=== PATIENT | male | born 1975 | race African-American/Black ===

== ENCOUNTER 2020-06-03 09:11 | Day surgery (SDCO) | payer SELFPAY ==
[2020-06-03 10:08] LABS: BASOPHIL 1.6 % (0-2); EOSINOPHIL 1.4 % (0-5); HCT 39.4 % (42.0-52.0); HGB 14.3 g/dl (13.2-18.0); LYMPHOCYTE 37.2 % (15-48); MCH 28.7 pg (25.0-31.0); MCHC 36.3 g/dL (32.0-36.0); MCV 79.1 fL (78.0-100.0); MONOCYTE 7.7 % (0-12); MPV 10.3 fL (6.0-9.5); NEUTROPHIL 51.7 % (41-80); NRBC 0; PLT 274 K/uL (150-400); RBC 4.98 M/uL (4.70-6.00); RDW 13.8 % (11.5-14.0); WBC 4.9 K/uL (4.0-10.5)
[2020-06-03 10:10] LABS: ALBUMIN 3.4 g/dL (3.4-5.0); BILIRUBIN - TOTAL 0.4 mg/dL (0.2-1.0); BUN/CREAT RATIO (CALC) 18.6 RATIO; CREATININE 0.86 mg/dL (0.67-1.17); GLOBULIN (CALCULATION) 3.5 g/dL; POTASSIUM 3.7 mmol/L (3.5-5.1); TOTAL PROTEIN 6.9 g/dL (6.4-8.2)
[2020-06-03 10:13] LABS: INR 0.97 (0.9-1.2); PROTHROMBIN TIME 12.2 SECONDS (11.4-13.6)
[2020-06-03 10:15] LABS: D-DIMER 0.28 ug/mLFEU (0.00-0.41)
[2020-06-03 10:59] LABS: CORONAVIRUS 2019 SARS-COV-2 NEGATIVE (NEGATIVE)
[2020-06-03 11:00] LABS: INFLUENZA A NAA NEGATIVE (NEGATIVE)
[2020-06-03] MEDS ORDERED: POTASSIUM20 MEQ/11 PO (16:05)
--- NOTE | 2020-06-03 19:36 | NUR ---
1819 PT COMPLAINED OF DULL CHEST PAIN CHECKED BLOOD PRESUURE 134/[address] MCCORD AND VERFIED GIVING NITRO SUBLINGUAL, DR MCCORD AGREED TO ADMINISTER 1 DOSE
[2020-06-04 06:14] LABS: BASOPHIL 0.9 % (0-2); EOSINOPHIL 1.3 % (0-5); HCT 40.6 % (42.0-52.0); HGB 14.4 g/dl (13.2-18.0); LYMPHOCYTE 40.5 % (15-48); MCH 28.2 pg (25.0-31.0); MCHC 35.5 g/dL (32.0-36.0); MCV 79.5 fL (78.0-100.0); MONOCYTE 6.3 % (0-12); MPV 9.9 fL (6.0-9.5); NEUTROPHIL 50.6 % (41-80); NRBC 0; PLT 273 K/uL (150-400); RBC 5.11 M/uL (4.70-6.00); RDW 13.5 % (11.5-14.0); WBC 5.4 K/uL (4.0-10.5)
[2020-06-04 06:33] LABS: BUN/CREAT RATIO (CALC) 13.9 RATIO; CREATININE 0.79 mg/dL (0.67-1.17); POTASSIUM 3.8 mmol/L (3.5-5.1)
== END 2020-06-04 12:35 | disposition home or self-care (01) ==
LOC: FER 09:11 → FMS 14:19
PROVIDERS: Emergency Medicine; Internal Medicine; ADMIT Hospitalist
DX: R07.89 Other chest pain (principal); E66.3 Overweight; Z68.39 Body mass index [BMI] 39.0-39.9, adult; Z20.822 Contact with and (suspected) exposure to COVID-19
CPT/HCPCS: 36415; 71045; 71275; 80048; 80053; 84484; 85025; 85379; 85610; 93005; G0378; Q9967; U0002

== ENCOUNTER 2020-11-28 17:31 | Emergency (ER) | payer SELFPAY ==
[~2020-11-28 17:31] MED LIST: POTASSIUM20 MEQ/11 PO
== END 2020-11-28 18:44 | disposition home or self-care (01) ==
LOC: FER 17:31
DX: U07.1 COVID-19 (principal)
CPT/HCPCS: 99283; U0002

== ENCOUNTER 2021-08-04 15:08 | Emergency (ER) | payer OTHER ==
[2021-08-04 17:43] LABS: INFLUENZA A NAA NEGATIVE (NEGATIVE)
[2021-08-04 17:46] LABS: CORONAVIRUS 2019 SARS-COV-2 POSITIVE (NEGATIVE)
[2021-08-04 18:10] LABS: BASOPHIL 1.3 % (0-2); EOSINOPHIL 0.4 % (0-5); HCT 41.6 % (42.0-52.0); HGB 14.8 g/dl (13.2-18.0); LYMPHOCYTE 11.5 % (15-48); MCH 28.4 pg (25.0-31.0); MCHC 35.6 g/dL (32.0-36.0); MCV 79.8 fL (78.0-100.0); MONOCYTE 12.6 % (0-12); MPV 9.3 fL (6.0-9.5); NEUTROPHIL 73.8 % (41-80); NRBC 0; PLT 257 K/uL (150-400); RBC 5.21 M/uL (4.70-6.00); RDW 13.7 % (11.5-14.0); WBC 4.8 K/uL (4.0-10.5)
[2021-08-04 18:34] LABS: ALBUMIN 3.9 g/dL (3.4-5.0); BILIRUBIN - TOTAL 0.6 mg/dL (0.2-1.0); BUN/CREAT RATIO (CALC) 12.1 RATIO; CREATININE 0.91 mg/dL (0.67-1.17); GLOBULIN (CALCULATION) 3.7 g/dL; POTASSIUM 3.4 mmol/L (3.5-5.1); TOTAL PROTEIN 7.6 g/dL (6.4-8.2)
== END 2021-08-04 19:35 | disposition home or self-care (01) ==
LOC: FER 15:08
PROVIDERS: Physician Assistant
DX: U07.1 COVID-19 (principal); R55 Syncope and collapse; Z28.310 Unvaccinated for COVID-19
CPT/HCPCS: 36415; 71045; 80053; 84484; 85025; 93005; U0002